=== PATIENT | male | born 1965 | race Caucasian/White ===

== ENCOUNTER 2017-01-26 09:09 | Inpatient (IN) | payer MEDICAID ==
[~2017-01-26] VITALS: Ht 167.6 cm; Wt 66.0 kg
[~2017-01-26 09:09] MED LIST: METF500T4 PO
[2017-01-26 09:42] LABS: GLUCOSE,POINT OF CARE 296 MG/DL (70-110)
[2017-01-26 09:57] LABS: BASOPHILS % (AUTO) 0.5 % (0.0-2.0); EOSINOPHILS % (AUTO) 6.1 % (1.0-6.0); HEMOGLOBIN 15.6 g/dL (13.5-17.5); LYMPHOCYTES # (AUTO) 1.7 K/uL (1.0-4.8); LYMPHOCYTES % (AUTO) 23.7 % (22.0-44.0); MEAN CORPUSCULAR HGB CONC 33.2 G/dL (31.0-37.0); MEAN CORPUSCULAR VOLUME 87 fL (80-100); MONOCYTES # (AUTO) 0.9 K/uL (0.1-1.0); MONOCYTES % (AUTO) 12.7 % (2.0-9.0); NEUTROPHILS # (AUTO) 4.1 K/uL (1.8-7.7); PLATELET COUNT (AUTO) 199 K/uL (150-450); RED BLOOD CELL COUNT(AUTO) 5.38 MIL/uL (4.50-5.90); RED CELL DISTRIBUTION WIDTH 12.6 % (11.5-14.5); WHITE BLOOD COUNT (AUTO) 7.1 K/uL (4.5-11.0)
[2017-01-26 10:11] LABS: ANION GAP 8 mmol/L (8-16); CALCIUM, TOTAL 9.3 mg/dL (8.8-10.5); CARBON DIOXIDE 27 mmol/L (22-29); CHLORIDE 101 mmol/L (98-107); CREATININE 0.89 mg/dL (0.60-1.30); GLOMERULAR FILTR. RATE CALC > 60 mL/min (>60); SODIUM SERUM 136 mmol/L (136-145); UREA NITROGEN, BLOOD 11 mg/dL (7-18)
[2017-01-26 10:17] LABS: ALANINE AMINOTRANSFERASE 35 U/L (12-78); ALBUMIN 3.4 g/dL (3.4-5.0); ASPARTATE AMINOTRANSFERASE 13 U/L (15-37); BILIRUBIN,TOTAL 0.6 mg/dL (0.1-1.0); TOTAL PROTEIN, SERUM 8.5 g/dL (6.4-8.2)
[2017-01-26] MEDS ORDERED: LEVOFLOXACIN 500 MG/D5% WATER 100 ML IV ONE (13:45)
[2017-01-26] MEDS ORDERED: ALBUTEROL SULFATE 2.5 MG/0.5 ML NEB SOLUTION NEB PRN (14:00)
[2017-01-26] MEDS ORDERED: ZOLPIDEM TARTRATE 10 MG TABLET PO PRN (14:00)
[2017-01-26] MEDS ORDERED: ACETAMINOPHEN 325 MG TABLET PO PRN (14:00)
[2017-01-26] MEDS ORDERED: 0.9% SODIUM CHLORIDE 5 ML NEB SOLUTION NEB ONE ×2 (15:05→19:40)
[2017-01-26] MEDS: ALBUTEROL SULFATE 2.5 MG/0.5 ML NEB SOLUTION NEB SCH ×2 (15:06→20:11)
[2017-01-26] MEDS: HEPARIN SODIUM,PORCINE 5,000 UNITS/ML VIAL SQ SCH ×2 (16:13→23:51)
[2017-01-26 16:42] LABS: GLUCOSE,POINT OF CARE 321 MG/DL (70-110)
[2017-01-26] MEDS ORDERED: DEXTROSE 50%-WATER 25 GM/50 ML SYRINGE IVP PRN (16:45)
[2017-01-26 17:35] VITALS: BP 142/98
[2017-01-26] MEDS: INSULIN ASPART 100 UNITS/ML SQ PRN ×2 (18:01→21:30)
[2017-01-26] MEDS ORDERED: INFLUENZA VIRUS VACCINE QVS 2016-17 (3YR+)/PF 60 MCG/0.5 ML SYRINGE IM ONE (18:30)
[2017-01-26] MEDS ORDERED: PNEUMOCOCCAL VACCINE POLYVALENT 0.5 ML VIAL [PPSV23] IM ONE (18:30)
[2017-01-26 19:51] LABS: GLUCOSE COMMENT 1 Received Meds; GLUCOSE,POINT OF CARE 301 MG/DL (70-110)
[2017-01-26 20:04] VITALS: BP 128/81
[2017-01-26 21:37] LABS: GLUCOSE,POINT OF CARE 325 MG/DL (70-110)
[2017-01-27 00:09] VITALS: BP 140/66
[2017-01-27] MEDS ORDERED: 0.9% SODIUM CHLORIDE 5 ML NEB SOLUTION NEB ONE ×3 (01:39→18:59)
[2017-01-27] MEDS: ALBUTEROL SULFATE 2.5 MG/0.5 ML NEB SOLUTION NEB SCH ×4 (01:46→19:04)
[2017-01-27 04:33] VITALS: BP 104/66
[2017-01-27] MEDS: INSULIN ASPART 100 UNITS/ML SQ PRN ×4 (06:02→21:49)
[2017-01-27 06:17] LABS: GLUCOSE,POINT OF CARE 209 MG/DL (70-110)
[2017-01-27 06:49] LABS: BASOPHILS % (AUTO) 0.5 % (0.0-2.0); EOSINOPHILS % (AUTO) 6.2 % (1.0-6.0); HEMATOCRIT 42.8 % (41-53); HEMOGLOBIN 14.1 g/dL (13.5-17.5); LYMPHOCYTES # (AUTO) 1.6 K/uL (1.0-4.8); LYMPHOCYTES % (AUTO) 24.2 % (22.0-44.0); MEAN CORPUSCULAR HGB CONC 32.8 G/dL (31.0-37.0); MEAN CORPUSCULAR VOLUME 88 fL (80-100); MONOCYTES # (AUTO) 0.9 K/uL (0.1-1.0); MONOCYTES % (AUTO) 13.6 % (2.0-9.0); NEUTROPHILS # (AUTO) 3.7 K/uL (1.8-7.7); NEUTROPHILS % (AUTO) 55.5 % (40.0-70.0); PLATELET COUNT (AUTO) 172 K/uL (150-450); RED BLOOD CELL COUNT(AUTO) 4.85 MIL/uL (4.50-5.90); RED CELL DISTRIBUTION WIDTH 12.8 % (11.5-14.5); WHITE BLOOD COUNT (AUTO) 6.6 K/uL (4.5-11.0)
[2017-01-27 07:26] LABS: ALANINE AMINOTRANSFERASE 31 U/L (12-78); ALBUMIN 2.9 g/dL (3.4-5.0); ANION GAP 8 mmol/L (8-16); ASPARTATE AMINOTRANSFERASE 15 U/L (15-37); BILIRUBIN,TOTAL 0.7 mg/dL (0.1-1.0); CALCIUM, TOTAL 8.8 mg/dL (8.8-10.5); CARBON DIOXIDE 27 mmol/L (22-29); CHLORIDE 102 mmol/L (98-107); CREATININE 0.83 mg/dL (0.60-1.30); GLOMERULAR FILTR. RATE CALC > 60 mL/min (>60); POTASSIUM 3.7 mmol/L (3.5-5.1); SODIUM SERUM 137 mmol/L (136-145); TOTAL PROTEIN, SERUM 7.6 g/dL (6.4-8.2); UREA NITROGEN, BLOOD 12 mg/dL (7-18)
[2017-01-27 07:39] LABS: HEMOGLOBIN A1C 10.4 % (4.5-6.2)
[2017-01-27 08:21] VITALS: BP 126/73
[2017-01-27] MEDS: HEPARIN SODIUM,PORCINE 5,000 UNITS/ML VIAL SQ SCH ×3 (08:22→23:30)
[2017-01-27] MEDS: PANTOPRAZOLE SODIUM 40 MG DR TABLET PO SCH (08:22)
[2017-01-27 11:00] VITALS: BP 120/76
[2017-01-27 15:40] VITALS: BP 111/74
[2017-01-27 16:12] LABS: GLUCOSE COMMENT 1 Received Meds; GLUCOSE,POINT OF CARE 288 MG/DL (70-110)
[2017-01-27 18:18] LABS: GLUCOSE COMMENT 1 Received Meds; GLUCOSE,POINT OF CARE 217 MG/DL (70-110)
[2017-01-27] MEDS ORDERED: IOVERSOL 350 MG/ML 150 ML VIAL ONE (18:37)
[2017-01-27] MEDS ORDERED: SODIUM CHLORIDE 0.9% 100 ML ONE (18:38)
[2017-01-27 19:30] VITALS: BP 119/78
[2017-01-27] MEDS: INSULIN DETEMIR 100 UNITS/ML SQ SCH (21:48)
[2017-01-28 00:52] VITALS: BP 106/63
[2017-01-28] MEDS ORDERED: 0.9% SODIUM CHLORIDE 5 ML NEB SOLUTION NEB ONE ×4 (02:09→19:06)
[2017-01-28] MEDS: ALBUTEROL SULFATE 2.5 MG/0.5 ML NEB SOLUTION NEB SCH ×4 (02:30→20:53)
[2017-01-28 04:25] VITALS: BP 103/66
[2017-01-28 04:46] LABS: GLUCOSE,POINT OF CARE 294 MG/DL (70-110)
[2017-01-28 05:46] LABS: GLUCOSE,POINT OF CARE 287 MG/DL (70-110)
[2017-01-28] MEDS: INSULIN ASPART 100 UNITS/ML SQ PRN ×4 (06:51→21:52)
[2017-01-28 08:46] VITALS: BP 115/76
[2017-01-28] MEDS: HEPARIN SODIUM,PORCINE 5,000 UNITS/ML VIAL SQ SCH ×2 (08:46→17:08)
[2017-01-28] MEDS: PANTOPRAZOLE SODIUM 40 MG DR TABLET PO SCH (08:46)
[2017-01-28 11:05] VITALS: BP 117/69
[2017-01-28 17:12] LABS: GLUCOSE COMMENT 1 Received Meds; GLUCOSE,POINT OF CARE 365 MG/DL (70-110)
[2017-01-28 20:16] VITALS: BP 107/67
[2017-01-28] MEDS: INSULIN DETEMIR 100 UNITS/ML SQ SCH (21:53)
[2017-01-28 22:02] LABS: GLUCOSE,POINT OF CARE 323 MG/DL (70-110)
[2017-01-28 22:07] LABS: GLUCOSE COMMENT 1 Received Meds; GLUCOSE,POINT OF CARE 253 MG/DL (70-110)
[2017-01-28 23:59] VITALS: BP 116/68
[2017-01-29] MEDS: HEPARIN SODIUM,PORCINE 5,000 UNITS/ML VIAL SQ SCH ×4 (00:43→23:45)
[2017-01-29] MEDS: ALBUTEROL SULFATE 2.5 MG/0.5 ML NEB SOLUTION NEB SCH ×4 (02:00→19:36)
[2017-01-29] MEDS ORDERED: 0.9% SODIUM CHLORIDE 5 ML NEB SOLUTION NEB ONE ×5 (02:27→19:24)
[2017-01-29 05:23] VITALS: BP 109/69
[2017-01-29] MEDS: INSULIN ASPART 100 UNITS/ML SQ PRN ×4 (05:43→20:41)
[2017-01-29 05:52] LABS: GLUCOSE,POINT OF CARE 290 MG/DL (70-110)
[2017-01-29 08:57] VITALS: BP 114/66
[2017-01-29] MEDS: PANTOPRAZOLE SODIUM 40 MG DR TABLET PO SCH (09:07)
[2017-01-29 11:52] LABS: GLUCOSE,POINT OF CARE 358 MG/DL (70-110)
[2017-01-29 11:56] VITALS: BP 100/70
[2017-01-29 16:57] VITALS: BP 118/65
[2017-01-29 18:07] LABS: COCCIDIOIDES IMMITIS AB IGG <0.150 Abs; COCCIDIOIDES IMMITIS AB IGM <0.150 Abs
[2017-01-29 19:30] VITALS: BP 122/68
[2017-01-29] MEDS: INSULIN DETEMIR 100 UNITS/ML SQ SCH (20:40)
[2017-01-30] VITALS (7 sets, daily range): BP systolic 111–155; BP diastolic 68–81
[2017-01-30] MEDS ORDERED: 0.9% SODIUM CHLORIDE 5 ML NEB SOLUTION NEB ONE ×3 (02:16→19:41)
[2017-01-30] MEDS: ALBUTEROL SULFATE 2.5 MG/0.5 ML NEB SOLUTION NEB SCH ×4 (03:02→19:44)
[2017-01-30 05:01] LABS: GLUCOSE COMMENT 1 Received Meds; GLUCOSE,POINT OF CARE 331 MG/DL (70-110)
[2017-01-30] MEDS: INSULIN ASPART 100 UNITS/ML SQ PRN ×4 (05:15→20:04)
[2017-01-30 06:27] LABS: GLUCOSE COMMENT 1 Received Meds; GLUCOSE,POINT OF CARE 253 MG/DL (70-110)
[2017-01-30] MEDS: PANTOPRAZOLE SODIUM 40 MG DR TABLET PO SCH (08:38)
[2017-01-30] MEDS: HEPARIN SODIUM,PORCINE 5,000 UNITS/ML VIAL SQ SCH ×2 (08:38→16:00)
[2017-01-30 11:17] LABS: GLUCOSE,POINT OF CARE 326 MG/DL (70-110)
[2017-01-30 12:36] LABS: ORGANISM ID Not indicated.
[2017-01-30 17:32] LABS: GLUCOSE,POINT OF CARE 354 MG/DL (70-110)
[2017-01-30 18:41] LABS: GLUCOSE,POINT OF CARE 173 MG/DL (70-110)
[2017-01-30] MEDS: INSULIN DETEMIR 100 UNITS/ML SQ SCH (20:06)
[2017-01-30 20:34] LABS: COCCIDIOIDES AB BY CF(TITER) Negative (Neg:<1:2)
[2017-01-30 20:36] LABS: GLUCOSE,POINT OF CARE 275 MG/DL (70-110)
[2017-01-31] MEDS ORDERED: 0.9% SODIUM CHLORIDE 5 ML NEB SOLUTION NEB ONE ×4 (01:29→18:52)
[2017-01-31] MEDS: ALBUTEROL SULFATE 2.5 MG/0.5 ML NEB SOLUTION NEB SCH ×4 (02:01→19:16)
[2017-01-31 05:00] VITALS: BP 109/76
[2017-01-31] MEDS: INSULIN ASPART 100 UNITS/ML SQ PRN ×4 (05:41→20:19)
[2017-01-31] MEDS: HEPARIN SODIUM,PORCINE 5,000 UNITS/ML VIAL SQ SCH ×3 (05:42→16:00)
[2017-01-31 06:12] LABS: GLUCOSE COMMENT 1 Received Meds; GLUCOSE,POINT OF CARE 187 MG/DL (70-110)
[2017-01-31 08:15] VITALS: BP 113/77
[2017-01-31] MEDS: PANTOPRAZOLE SODIUM 40 MG DR TABLET PO SCH (09:00)
[2017-01-31 11:30] VITALS: BP 132/84
[2017-01-31 11:42] LABS: GLUCOSE COMMENT 1 Received Meds; GLUCOSE,POINT OF CARE 229 MG/DL (70-110)
[2017-01-31 16:00] VITALS: BP 118/79
[2017-01-31 18:02] LABS: GLUCOSE COMMENT 1 Received Meds; GLUCOSE,POINT OF CARE 191 MG/DL (70-110)
[2017-01-31 19:29] VITALS: BP 100/57
[2017-01-31] MEDS: INSULIN DETEMIR 100 UNITS/ML SQ SCH (21:00)
[2017-01-31 23:20] VITALS: BP 107/66
[2017-02-01] MEDS: ALBUTEROL SULFATE 2.5 MG/0.5 ML NEB SOLUTION NEB SCH ×4 (02:00→19:02)
[2017-02-01 05:01] VITALS: BP 119/78
[2017-02-01 06:02] LABS: GLUCOSE COMMENT 1 Received Meds; GLUCOSE,POINT OF CARE 190 MG/DL (70-110)
[2017-02-01 06:07] LABS: GLUCOSE,POINT OF CARE 167 MG/DL (70-110)
[2017-02-01 06:43] LABS: PROTHROMBIN TIME 10.3 SEC (9.4-11.6)
[2017-02-01 08:00] VITALS: BP 107/76
[2017-02-01] MEDS: HEPARIN SODIUM,PORCINE 5,000 UNITS/ML VIAL SQ SCH ×4 (08:00→23:38)
[2017-02-01] MEDS ORDERED: 0.9% SODIUM CHLORIDE 5 ML NEB SOLUTION NEB ONE ×3 (08:17→18:48)
[2017-02-01] MEDS: PANTOPRAZOLE SODIUM 40 MG DR TABLET PO SCH (09:00)
[2017-02-01] MEDS ORDERED: FentaNYL CITRATE-PF 100 MCG/2 ML VIAL ONE (10:10)
[2017-02-01] MEDS ORDERED: MIDAZOLAM HCL 2 MG/2 ML VIAL ONE (10:11)
[2017-02-01] MEDS ORDERED: LIDOCAINE HCL/PF 1% 5 ML VIAL ONE (10:11)
[2017-02-01] MEDS ORDERED: FentaNYL CITRATE-PF 100 MCG/2 ML VIAL IVP ONE (10:41)
[2017-02-01] MEDS ORDERED: MIDAZOLAM HCL 2 MG/2 ML VIAL IM ONE (10:41)
[2017-02-01] MEDS: OxyCODONE HCL/ACETAMINOPHEN 5-325 MG TABLET PO PRN (11:40)
[2017-02-01] MEDS: INSULIN ASPART 100 UNITS/ML SQ PRN ×3 (11:48→20:31)
[2017-02-01 11:57] LABS: GLUCOSE COMMENT 1 Received Meds; GLUCOSE,POINT OF CARE 179 MG/DL (70-110)
[2017-02-01 12:00] VITALS: BP 136/85
[2017-02-01 16:00] VITALS: BP 116/67
[2017-02-01 19:43] VITALS: BP 111/57
[2017-02-01] MEDS: INSULIN DETEMIR 100 UNITS/ML SQ SCH (20:31)
[2017-02-01 20:37] LABS: GLUCOSE COMMENT 1 Received Meds; GLUCOSE,POINT OF CARE 225 MG/DL (70-110)
[2017-02-01 20:57] LABS: GLUCOSE COMMENT 1 Received Meds; GLUCOSE,POINT OF CARE 204 MG/DL (70-110)
[2017-02-01 23:58] VITALS: BP 109/73
[2017-02-02] MEDS: ALBUTEROL SULFATE 2.5 MG/0.5 ML NEB SOLUTION NEB SCH ×3 (02:00→14:34)
[2017-02-02] MEDS ORDERED: 0.9% SODIUM CHLORIDE 5 ML NEB SOLUTION NEB ONE ×3 (02:45→14:29)
[2017-02-02 04:01] VITALS: BP 100/68
[2017-02-02] MEDS: INSULIN ASPART 100 UNITS/ML SQ PRN ×2 (05:46→13:43)
[2017-02-02 06:47] LABS: GLUCOSE COMMENT 1 Received Meds; GLUCOSE,POINT OF CARE 134 MG/DL (70-110)
[2017-02-02 07:35] VITALS: BP 102/67
[2017-02-02] MEDS: HEPARIN SODIUM,PORCINE 5,000 UNITS/ML VIAL SQ SCH (07:53)
[2017-02-02] MEDS: OxyCODONE HCL/ACETAMINOPHEN 5-325 MG TABLET PO PRN (07:53)
[2017-02-02] MEDS: PANTOPRAZOLE SODIUM 40 MG DR TABLET PO SCH (07:54)
[2017-02-02 12:15] VITALS: BP 122/86
[2017-02-02 12:21] LABS: GLUCOSE COMMENT 1 Received Meds; GLUCOSE,POINT OF CARE 228 MG/DL (70-110)
[2017-02-02] MEDS ORDERED: INSLAN SQ (13:48)
[2017-02-02] MEDS ORDERED: ALBU8HFA IH (13:51)
[2017-02-05 19:58] LABS: AFB SPECIMEN PROCESSING Concentration
[2017-02-06 09:11] LABS: MTB NUCL.ACID AMPLIF W/O AFBCS Negative (Negative)
== END 2017-02-02 15:40 | disposition home or self-care (01) | DRG 144 ==
LOC: EMS 09:10 → 6N 16:09
PROVIDERS: ADMIT Hospitalist; ATTEND Hospitalist
PROC: 0BBC3ZX Excision of Right Upper Lung Lobe, Percutaneous Approach, Diagnostic (ICD-10-PCS; principal; 2017-02-01)
DX: R91.8 Other nonspecific abnormal finding of lung field (principal); I76 Septic arterial embolism; I50.22 Chronic systolic (congestive) heart failure; D72.1 Eosinophilia; B38.9 Coccidioidomycosis, unspecified; E11.9 Type 2 diabetes mellitus without complications; I25.10 Atherosclerotic heart disease of native coronary artery without angina pectoris; Z79.4 Long term (current) use of insulin
CPT/HCPCS: 32405; 71250; 74177; 82962; 83036; 86225; 86430; 86635; 87015; 87070; 87101; 87149; 87188; 87205; 87449; 87556; 87899; 88305; 88312; 90471; 93306; 94640; 96365; 96366; 99285; J1644; J1956; J2250; J3010; J3490; J7050

== ENCOUNTER 2017-03-15 18:08 | Inpatient (IN) | payer MEDICAID ==
[~2017-03-15] VITALS: Ht 167.6 cm; Wt 59.7 kg
[~2017-03-15 18:08] MED LIST changes: +ALBU8HFA IH; +INSLAN SQ
[2017-03-15] MEDS ORDERED: SODIUM CHLORIDE 0.9% 1,000 ML IV ONE (19:00)
[2017-03-15] MEDS ORDERED: INSULIN REGULAR, HUMAN 100 UNITS/ML IVP ONE (19:00)
[2017-03-15] MEDS ORDERED: ACETAMINOPHEN 325 MG TABLET PO PRN (19:30)
[2017-03-15] MEDS ORDERED: 0.9% SODIUM CHLORIDE 10 ML SYRINGE IVP PRN (19:30)
[2017-03-15] MEDS ORDERED: *CLINICAL-RX DOSING [ENTER DRUG IN COMMENTS] CLINICAL ONE (19:30)
[2017-03-15] MEDS ORDERED: ONDANSETRON HCL 4 MG/2 ML VIAL IVP PRN (19:30)
[2017-03-15 19:39] LABS: BASOPHILS % (AUTO) 0.4 % (0.0-2.0); EOSINOPHILS % (AUTO) 4.4 % (1.0-6.0); HEMATOCRIT 42.8 % (41-53); HEMOGLOBIN 14.1 g/dL (13.5-17.5); LYMPHOCYTES # (AUTO) 1.9 K/uL (1.0-4.8); MEAN CORPUSCULAR HEMOGLOBIN 29.1 pg (26.0-34.0); MEAN CORPUSCULAR HGB CONC 32.9 G/dL (31.0-37.0); MEAN CORPUSCULAR VOLUME 89 fL (80-100); MONOCYTES # (AUTO) 0.1 K/uL (0.1-1.0); MONOCYTES % (AUTO) 2.2 % (2.0-9.0); NEUTROPHILS # (AUTO) 4.1 K/uL (1.8-7.7); PLATELET COUNT (AUTO) 195 K/uL (150-450); RED BLOOD CELL COUNT(AUTO) 4.84 MIL/uL (4.50-5.90); WHITE BLOOD COUNT (AUTO) 6.5 K/uL (4.5-11.0)
[2017-03-15] MEDS ORDERED: RIFAMPIN 300 MG CAPSULE PO SCH (19:45)
[2017-03-15] MEDS ORDERED: PYRAZINAMIDE 500 MG TABLET PO SCH (19:45)
[2017-03-15] MEDS ORDERED: PYRIDOXINE HCL 50 MG TABLET PO SCH (19:45)
[2017-03-15] MEDS ORDERED: ISONIAZID 300 MG TABLET PO SCH (19:45)
[2017-03-15] MEDS ORDERED: ETHAMBUTOL HCL 400 MG TABLET PO SCH (19:45)
[2017-03-15 19:50] LABS: ANION GAP 9 mmol/L (8-16); CALCIUM, TOTAL 8.9 mg/dL (8.8-10.5); CARBON DIOXIDE 26 mmol/L (22-29); CHLORIDE 103 mmol/L (98-107); CREATININE 0.93 mg/dL (0.60-1.30); GLOMERULAR FILTR. RATE CALC > 60 mL/min (>60); POTASSIUM 3.9 mmol/L (3.5-5.1); SODIUM SERUM 138 mmol/L (136-145); UREA NITROGEN, BLOOD 14 mg/dL (7-18)
[2017-03-15 19:56] LABS: ALANINE AMINOTRANSFERASE 31 U/L (12-78); ALBUMIN 3.3 g/dL (3.4-5.0); ASPARTATE AMINOTRANSFERASE 12 U/L (15-37); BILIRUBIN,TOTAL 0.4 mg/dL (0.1-1.0); TOTAL PROTEIN, SERUM 7.5 g/dL (6.4-8.2)
[2017-03-15 20:57] LABS: GLUCOSE,POINT OF CARE 83 MG/DL (70-110)
[2017-03-15 22:20] VITALS: BP 126/69
[2017-03-15 23:59] VITALS: BP 108/66
[2017-03-16] MEDS ORDERED: ALBUTEROL SULFATE HFA 90 MCG/PUFF 8 GM INHALER IH PRN (02:15)
[2017-03-16] MEDS ORDERED: MAGNESIUM HYDROXIDE SUSPENSION 30 ML UDCUP PO PRN (02:15)
[2017-03-16] MEDS ORDERED: ACETAMINOPHEN 325 MG TABLET PO PRN (02:15)
[2017-03-16] MEDS: DOCUSATE SODIUM 100 MG CAPSULE PO SCH ×3 (02:15→20:13)
[2017-03-16] MEDS ORDERED: OxyCODONE HCL/ACETAMINOPHEN 5-325 MG TABLET PO PRN ×2 (02:15)
[2017-03-16] MEDS ORDERED: 0.9% SODIUM CHLORIDE 10 ML SYRINGE IVP PRN (02:15)
[2017-03-16] MEDS ORDERED: ONDANSETRON HCL 4 MG/2 ML VIAL IVP PRN (02:15)
[2017-03-16] MEDS ORDERED: DEXTROSE 50%-WATER 25 GM/50 ML SYRINGE IVP PRN (05:00)
[2017-03-16 05:34] VITALS: BP 113/72
[2017-03-16] MEDS: INSULIN ASPART 100 UNITS/ML SQ PRN ×4 (06:29→21:02)
[2017-03-16 08:04] VITALS: BP 110/71
[2017-03-16] MEDS: PANTOPRAZOLE SODIUM 40 MG/VIAL IVP SCH (10:00)
[2017-03-16 11:36] VITALS: BP 111/67
[2017-03-16] MEDS: PYRIDOXINE HCL 50 MG TABLET PO SCH (13:40)
[2017-03-16 15:22] VITALS: BP 124/81
[2017-03-16] MEDS: RIFAMPIN 300 MG CAPSULE PO SCH (15:48)
[2017-03-16] MEDS: PYRAZINAMIDE 500 MG TABLET PO SCH (15:49)
[2017-03-16] MEDS: ETHAMBUTOL HCL 400 MG TABLET PO SCH (15:49)
[2017-03-16] MEDS: ISONIAZID 300 MG TABLET PO SCH (15:49)
[2017-03-16 19:24] VITALS: BP 118/79
[2017-03-16 20:02] LABS: GLUCOSE COMMENT 1 Received Meds; GLUCOSE,POINT OF CARE 226 MG/DL (70-110)
[2017-03-16 20:02] LABS: GLUCOSE COMMENT 1 Received Meds; GLUCOSE,POINT OF CARE 189 MG/DL (70-110)
[2017-03-16 20:07] LABS: GLUCOSE COMMENT 1 Received Meds; GLUCOSE,POINT OF CARE 212 MG/DL (70-110)
[2017-03-17] VITALS (7 sets, daily range): BP systolic 104–143; BP diastolic 64–80
[2017-03-17] MEDS: INSULIN ASPART 100 UNITS/ML SQ PRN ×4 (06:18→20:41)
[2017-03-17 06:26] LABS: BASOPHILS % (AUTO) 0.4 % (0.0-2.0); EOSINOPHILS % (AUTO) 4.8 % (1.0-6.0); HEMATOCRIT 43.1 % (41-53); HEMOGLOBIN 13.9 g/dL (13.5-17.5); LYMPHOCYTES # (AUTO) 1.8 K/uL (1.0-4.8); LYMPHOCYTES % (AUTO) 19.8 % (22.0-44.0); MEAN CORPUSCULAR HEMOGLOBIN 28.7 pg (26.0-34.0); MEAN CORPUSCULAR HGB CONC 32.3 G/dL (31.0-37.0); MEAN CORPUSCULAR VOLUME 89 fL (80-100); MONOCYTES # (AUTO) 0.8 K/uL (0.1-1.0); MONOCYTES % (AUTO) 8.2 % (2.0-9.0); NEUTROPHILS # (AUTO) 6.2 K/uL (1.8-7.7); NEUTROPHILS % (AUTO) 66.8 % (40.0-70.0); PLATELET COUNT (AUTO) 207 K/uL (150-450); RED BLOOD CELL COUNT(AUTO) 4.87 MIL/uL (4.50-5.90); RED CELL DISTRIBUTION WIDTH 13.8 % (11.5-14.5); WHITE BLOOD COUNT (AUTO) 9.2 K/uL (4.5-11.0)
[2017-03-17 07:45] LABS: ANION GAP 8 mmol/L (8-16); CALCIUM, TOTAL 8.4 mg/dL (8.8-10.5); CARBON DIOXIDE 27 mmol/L (22-29); CHLORIDE 104 mmol/L (98-107); CREATININE 0.79 mg/dL (0.60-1.30); GLOMERULAR FILTR. RATE CALC > 60 mL/min (>60); POTASSIUM 3.9 mmol/L (3.5-5.1); SODIUM SERUM 139 mmol/L (136-145); UREA NITROGEN, BLOOD 14 mg/dL (7-18)
[2017-03-17] MEDS: PANTOPRAZOLE SODIUM 40 MG/VIAL IVP SCH (08:53)
[2017-03-17] MEDS: RIFAMPIN 300 MG CAPSULE PO SCH (08:53)
[2017-03-17] MEDS: DOCUSATE SODIUM 100 MG CAPSULE PO SCH ×2 (08:54→20:36)
[2017-03-17] MEDS: PYRIDOXINE HCL 50 MG TABLET PO SCH (08:54)
[2017-03-17] MEDS: ETHAMBUTOL HCL 400 MG TABLET PO SCH (08:54)
[2017-03-17] MEDS: PYRAZINAMIDE 500 MG TABLET PO SCH (08:54)
[2017-03-17] MEDS: ISONIAZID 300 MG TABLET PO SCH (08:54)
[2017-03-17 13:26] LABS: GLUCOSE COMMENT 1 Received Meds; GLUCOSE,POINT OF CARE 171 MG/DL (70-110)
[2017-03-17 22:02] LABS: GLUCOSE COMMENT 1 Received Meds; GLUCOSE,POINT OF CARE 191 MG/DL (70-110)
[2017-03-18 05:03] VITALS: BP 108/79
[2017-03-18] MEDS: INSULIN ASPART 100 UNITS/ML SQ PRN ×4 (06:03→21:31)
[2017-03-18 07:45] VITALS: BP 115/68
[2017-03-18] MEDS: PANTOPRAZOLE SODIUM 40 MG/VIAL IVP SCH (08:33)
[2017-03-18] MEDS: DOCUSATE SODIUM 100 MG CAPSULE PO SCH ×2 (08:34→21:27)
[2017-03-18] MEDS: PYRAZINAMIDE 500 MG TABLET PO SCH (08:34)
[2017-03-18] MEDS: ISONIAZID 300 MG TABLET PO SCH (08:34)
[2017-03-18] MEDS: RIFAMPIN 300 MG CAPSULE PO SCH (08:34)
[2017-03-18] MEDS: PYRIDOXINE HCL 50 MG TABLET PO SCH (08:35)
[2017-03-18] MEDS ORDERED: ETHAMBUTOL HCL 400 MG TABLET PO SCH (09:00)
[2017-03-18 11:33] VITALS: BP 132/94
[2017-03-18] MEDS ORDERED: SODIUM CHLORIDE 3% 15 ML NEB SOLUTION NEB ONE (16:07)
[2017-03-18 16:36] VITALS: BP 128/78
[2017-03-18 18:37] LABS: GLUCOSE COMMENT 1 Received Meds; GLUCOSE,POINT OF CARE 175 MG/DL (70-110)
[2017-03-18 18:41] LABS: GLUCOSE COMMENT 1 Received Meds; GLUCOSE,POINT OF CARE 150 MG/DL (70-110)
[2017-03-18 18:57] LABS: GLUCOSE COMMENT 1 Received Meds; GLUCOSE,POINT OF CARE 187 MG/DL (70-110)
[2017-03-18 20:02] VITALS: BP 140/62
[2017-03-18 23:55] VITALS: BP 119/82
[2017-03-19 00:31] LABS: GLUCOSE COMMENT 1 Received Meds; GLUCOSE,POINT OF CARE 280 MG/DL (70-110)
[2017-03-19 04:15] VITALS: BP 108/74
[2017-03-19] MEDS: INSULIN ASPART 100 UNITS/ML SQ PRN ×3 (06:00→18:26)
[2017-03-19 07:14] VITALS: BP 109/69
[2017-03-19] MEDS: RIFAMPIN 300 MG CAPSULE PO SCH (07:41)
[2017-03-19] MEDS: PYRIDOXINE HCL 50 MG TABLET PO SCH (07:41)
[2017-03-19] MEDS: ISONIAZID 300 MG TABLET PO SCH (07:41)
[2017-03-19] MEDS: PANTOPRAZOLE SODIUM 40 MG/VIAL IVP SCH (07:41)
[2017-03-19] MEDS: DOCUSATE SODIUM 100 MG CAPSULE PO SCH ×2 (07:41→21:54)
[2017-03-19] MEDS: PYRAZINAMIDE 500 MG TABLET PO SCH (07:41)
[2017-03-19] MEDS: ETHAMBUTOL HCL 400 MG TABLET PO SCH (07:41)
[2017-03-19 11:33] VITALS: BP 153/72
[2017-03-19 15:52] VITALS: BP 105/74
[2017-03-19 19:37] LABS: GLUCOSE COMMENT 1 Received Meds; GLUCOSE,POINT OF CARE 218 MG/DL (70-110)
[2017-03-19 20:00] VITALS: BP 123/76
[2017-03-19 23:54] VITALS: BP 115/69
[2017-03-20 05:57] VITALS: BP 129/67
[2017-03-20 07:36] VITALS: BP 108/65
[2017-03-20] MEDS: PYRAZINAMIDE 500 MG TABLET PO SCH (08:12)
[2017-03-20] MEDS: RIFAMPIN 300 MG CAPSULE PO SCH (08:12)
[2017-03-20] MEDS: PANTOPRAZOLE SODIUM 40 MG/VIAL IVP SCH (08:12)
[2017-03-20] MEDS: ETHAMBUTOL HCL 400 MG TABLET PO SCH (08:12)
[2017-03-20] MEDS: PYRIDOXINE HCL 50 MG TABLET PO SCH (08:12)
[2017-03-20] MEDS: ISONIAZID 300 MG TABLET PO SCH (08:12)
[2017-03-20] MEDS: DOCUSATE SODIUM 100 MG CAPSULE PO SCH ×2 (08:13→21:40)
[2017-03-20 11:25] VITALS: BP 126/71
[2017-03-20] MEDS: INSULIN ASPART 100 UNITS/ML SQ PRN ×3 (12:11→21:45)
[2017-03-20 15:09] VITALS: BP 115/59
[2017-03-20 16:53] LABS: GLUCOSE COMMENT 1 Received Meds; GLUCOSE,POINT OF CARE 198 MG/DL (70-110)
[2017-03-20 19:47] VITALS: BP 120/71
[2017-03-20 22:53] LABS: GLUCOSE COMMENT 1 Received Meds; GLUCOSE,POINT OF CARE 201 MG/DL (70-110)
[2017-03-20 23:27] VITALS: BP 123/67
[2017-03-21] MEDS ORDERED: ETHAMBUTOL HCL 400 MG TABLET PO SCH
[2017-03-21] MEDS ORDERED: PYRAZINAMIDE 500 MG TABLET PO SCH
[2017-03-21] MEDS ORDERED: PYRIDOXINE HCL 50 MG TABLET PO SCH
[2017-03-21 04:04] VITALS: BP 115/72
[2017-03-21] MEDS: INSULIN ASPART 100 UNITS/ML SQ PRN ×2 (06:49→17:13)
[2017-03-21 07:48] VITALS: BP 113/73
[2017-03-21] MEDS: ISONIAZID 300 MG TABLET PO SCH (08:15)
[2017-03-21] MEDS: ETHAMBUTOL HCL 400 MG TABLET PO SCH (08:15)
[2017-03-21] MEDS: PANTOPRAZOLE SODIUM 40 MG/VIAL IVP SCH (08:15)
[2017-03-21] MEDS: RIFAMPIN 300 MG CAPSULE PO SCH (08:15)
[2017-03-21] MEDS: DOCUSATE SODIUM 100 MG CAPSULE PO SCH (08:15)
[2017-03-21] MEDS: PYRIDOXINE HCL 50 MG TABLET PO SCH (08:15)
[2017-03-21] MEDS: PYRAZINAMIDE 500 MG TABLET PO SCH (08:16)
[2017-03-21 08:58] LABS: GLUCOSE COMMENT 1 Received Meds; GLUCOSE,POINT OF CARE 181 MG/DL (70-110)
[2017-03-21 11:17] VITALS: BP 128/76
[2017-03-21] MEDS ORDERED: ETHA100T14 PO (14:21)
[2017-03-21] MEDS ORDERED: ISON300 PO (14:23)
[2017-03-21] MEDS ORDERED: PYRA500 PO (14:24)
[2017-03-21] MEDS ORDERED: RIFA300 PO (14:24)
[2017-03-21] MEDS ORDERED: PYRI50 PO (14:25)
[2017-03-21 16:04] VITALS: BP 120/70
[2017-03-22 07:04] LABS: GLUCOSE COMMENT 1 Received Meds; GLUCOSE,POINT OF CARE 209 MG/DL (70-110)
== END 2017-03-21 19:00 | disposition home or self-care (01) | DRG 137 ==
LOC: EMS 18:09 → 5N 21:24
PROVIDERS: ADMIT Internal Medicine; ATTEND Internal Medicine
DX: A15.0 Tuberculosis of lung (principal); E44.0 Moderate protein-calorie malnutrition; J44.9 Chronic obstructive pulmonary disease, unspecified; E11.65 Type 2 diabetes mellitus with hyperglycemia; E86.0 Dehydration; Z91.14 Patient's other noncompliance with medication regimen; Z79.4 Long term (current) use of insulin; Z79.899 Other long term (current) drug therapy; Z87.01 Personal history of pneumonia (recurrent); Z68.21 Body mass index [BMI] 21.0-21.9, adult
CPT/HCPCS: 82962; 87015; 87149; 87153; 96360; 96374; 99285; C9113; G0480; J1815; J7030